=== PATIENT | female | born 1995 | race Caucasian/White ===

== ENCOUNTER 2018-01-01 13:56 | Emergency (ER) | payer OTHER ==
[~2018-01-01] VITALS: Ht 167.6 cm; Wt 63.0 kg
[2018-01-01 13:57] VITALS: TEMP 37; Ht 167.6 cm; Wt 63.0 kg
[2018-01-01] MEDS ORDERED: BCPILLS PO (14:15)
--- NOTE | 2018-01-01 14:33 | DIAGNOSTIC IMAGING REPORT ---
RIGHT ANKLE 3 VIEWS CLINICAL HISTORY: Right ankle injury. FINDINGS: 3 views of the right ankle are obtained. No prior studies are available for comparison at the time of dictation. The skeletal structures are well mineralized. No fracture is seen. The ankle mortise is intact. There is no joint effusion. Mild soft tissue swelling is present around the ankle. IMPRESSION: Mild soft tissue swelling with no radiographic evidence of fracture. Electronically signed by: James Jo M.D. 01/01/2018 2:31 PM Dictated Date/Time: 01/01/2018 2:30 PM
--- NOTE | 2018-01-01 14:34 | DIAGNOSTIC IMAGING REPORT ---
RIGHT FOOT 3 VIEWS CLINICAL HISTORY: Right foot injury. FINDINGS: 3 views of the right foot are obtained. No prior studies are available for comparison at the time of dictation. The skeletal structures are well mineralized. No fracture is seen. The joint spaces of the foot are maintained. The overlying soft tissues are normal in appearance. IMPRESSION: There is no radiographic evidence of right foot fracture. Electronically signed by: James Jo M.D. 01/01/2018 2:32 PM Dictated Date/Time: 01/01/2018 2:32 PM
--- NOTE | 2018-01-01 14:47 | EMERGENCY ROOM VISIT NOTE ---
ED Visit Note First contact with patient: 14:03 CHIEF COMPLAINT: Right foot and ankle injury 12 hours ago HISTORY OF PRESENT ILLNESS: Patient is a 22-year-old female who presents emergency department for evaluation of right foot and ankle pain. She was wearing high heels and walking on uneven gravel and she sustained an inversion injury to the ankle. She notes pain in the medial aspect of the foot and ankle that is worse with weightbearing. She rates her discomfort a 6/10. She took ibuprofen this morning for discomfort. 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 REVIEW OF SYSTEMS: Review of systems as per HPI. All other systems reviewed were negative. At least 6 systems reviewed PMH: Electronic medical records are reviewed and summarized as above/below. See Problem List. SOCIAL HISTORY: Patient is a college student from [place] who lives on campus. Non-smoker. PHYSICAL EXAM: Vital Signs: Reviewed Nurse's notes. MENTAL STATUS: Alert, oriented, and cooperative. MUSCULOSKELETAL: Examination of the right foot and ankle do not note any significant soft tissue swelling, erythema or ecchymosis. The right ankle is slightly tender over the medial aspect but the skin is intact and there is no ligamentous instability. No pain over the 5th metatarsal or fibular head. She does have discomfort in the arch of her foot along the first metatarsal. Lisfranc joint is negative. There is no deformity. The foot and toes are warm and well-perfused. Sensation to pain and light touch is intact. EMERGENCY DEPARTMENT COURSE: X-ray of the right foot and ankle were obtained and were negative for acute fracture. Patient was placed in a walking boot. She declined crutches. Supportive care measures were discussed. She was encouraged to follow-up with [facility] if her symptoms are not improving. Differential diagnosis include foot verses ankle sprain/fracture, contusion, dislocation. Medication reconciliation: I attest that I have personally reviewed the patient' s current medication list. Blood pressure screening : Patient was found to have normal blood pressure on screening and does not require follow-up. RIGHT ANKLE 3 VIEWS CLINICAL HISTORY: Right ankle injury. FINDINGS: 3 views of the right ankle are obtained. No prior studies are available for comparison at the time of dictation. The skeletal structures are well mineralized. No fracture is seen. The ankle mortise is intact. There is no joint effusion. Mild soft tissue swelling is present around the ankle. IMPRESSION: Mild soft tissue swelling with no radiographic evidence of fracture. RIGHT FOOT 3 VIEWS CLINICAL HISTORY: Right foot injury. FINDINGS: 3 views of the right foot are obtained. No prior studies are available for comparison at the time of dictation. The skeletal structures are well mineralized. No fracture is seen. The joint spaces of the foot are maintained. The overlying soft tissues are normal in appearance. IMPRESSION: There is no radiographic evidence of right foot fracture. Current/Historical Medications Scheduled Control Pills ( Control Pills), 1 TAB PO DAILY Allergies Coded Allergies: Penicillins (Unverified Allergy, Unknown, CHILDHOOD ALLERGY, 01/01/18) Vital Signs Date Time Temp Pulse Resp B/P (MAP) Pulse Ox O2 Delivery O2 Flow Rate FiO2 01/01/18 13:57 37.0 106 20 119/85 98 Room Air Departure Information Impression Primary Impression: Right foot sprain Additional Impression: Right ankle sprain Referrals [facility] Patient Instructions [facility] Additional Instructions Ibuprofen(Motrin, Advil) may be used for fever or pain. Use 600mg every six hours as needed. Take with food. Avoid using more than 2400mg in a 24 hour period. Do not use 2400mg per day for more than three consecutive days without physician direction. Prolonged inappropriate use can lead to stomach upset or ulcers. This medication can be taken if you need to drive, work, or perform activities which may be dangerous when taking narcotic pain medication. (AND/OR) Acetaminophen(Tylenol) may be used for fever or pain. Use 1000mg every six hours as needed. Avoid using more than 3000mg in a 24 hour period. This medication can be taken if you need to drive, work, or perform activities which may be dangerous when taking narcotic pain medication. Ice compresses for 20 minutes at a time four times daily for 2-3 days. Use the walking boot as instructed. Rest and elevate your injury. Continue current medications. Return to the ER immediately for any numbness, tingling, severe pain, extreme swelling in the extremity or as needed. Followup with [facility] if your symptoms are not improving in the next 7-10 days. Problem Qualifiers
[2018-01-01 15:02] VITALS: BP 106/76; PULSE 85; O2SAT 96
== END 2018-01-01 15:04 | disposition home or self-care (01) ==
LOC: C.EDB 13:57 → C.EDD 15:04
DX: S93.601A Unspecified sprain of right foot, initial encounter (principal); S93.401A Sprain of unspecified ligament of right ankle, initial encounter; X50.9XXA Other and unspecified overexertion or strenuous movements or postures, initial encounter